=== PATIENT | male | born 2000 | race Caucasian/White ===

== ENCOUNTER 2018-02-01 21:36 | Emergency (ER) | payer SELFPAY ==
[~2018-02-01] VITALS: Ht 167.6 cm; Wt 54.5 kg
[2018-02-01 21:55] VITALS: BP 111/75
== END 2018-02-02 03:50 | disposition left against medical advice (07) ==
LOC: ER 23:19
DX: F10.129 Alcohol abuse with intoxication, unspecified (principal); R32 Unspecified urinary incontinence; Z53.21 Procedure and treatment not carried out due to patient leaving prior to being seen by health care provider